=== PATIENT | female | born 1995 | race Caucasian/White ===

== ENCOUNTER → 2016-12-07 | Outpatient (CLI) | payer BC ==
--- NOTE | 2016-12-07 08:16 | REP ---
CT abdomen pelvis without contrast 12/07/2016 Indication: Hydronephrosis renal and ureteral calculus and obstruction ;intermittent left lower quadrant pain Comparison: CT abdomen pelvis Findings: Lung bases are clear bilaterally. Liver, spleen,pancreas, gallbladder, adrenal glands are normal. Kidneys are without hydronephrosis or obstructing ureteral calculi bilaterally. Previous 5 mm calculus at left ureteral vesicle junction is no longer present. Stable a mm left Nephro calculus is identified. Abdominal aorta is of normal course and caliber. Stomach and small bowel are within normal limits. Appendix is not specifically visualized however there are no inflammatory changes in the right lower quadrant Uterus and adnexa are within normal limits. Bladder is contracted. There is moderate diffuse retained colonic stool. There is no free air or ascites. Impression: No hydronephrosis or obstructing ureteral calculi bilaterally. Previous obstructing 5 mm calculus at left ureteral vesicle junction is no longer present. Stable 3 mm nonobstructing left Nephro calculus. Moderate diffuse retained colonic stool/ constipation Signed by Carolyn Lott MD 12/07/2016 08:08 A
== END | disposition home or self-care (01) ==
LOC: M RAD 07:11
PROVIDERS: ATTEND Urology
DX: N13.2 Hydronephrosis with renal and ureteral calculous obstruction (principal); K59.00 Constipation, unspecified

== ENCOUNTER → 2017-01-09 | Outpatient (REF) | payer BC | LOC: M SFHCPLAZ 12:52 | PROVIDERS: ATTEND Nurse Practitioner Adult Health | DX: R35.0 Frequency of micturition (principal) ==

== ENCOUNTER → 2017-06-28 | Outpatient (REF) | payer BC ==
[2017-06-28 10:48] LABS: MEAN CORPUSCULAR HEMOGLOBIN 31.4 pg (27.0-33.0); MEAN CORPUSCULAR HGB CONC 34.4 g/dl (32.0-36.5); MEAN CORPUSCULAR VOLUME 91.2 fl (80.0-96.0); RED CELL DISTRIBUTION WIDTH 12.6 % (11.5-14.5); WHITE BLOOD COUNT 8.5 K/mm3 (4.0-10.0)
[2017-06-28 14:19] LABS: ALBUMIN 3.8 GM/DL (3.2-5.2); ALBUMIN/GLOBULIN RATIO 1.23 (1.00-1.93); ALKALINE PHOSPHATASE 80 U/L (45-117); ALT/SGPT 54 U/L (12-78); ANION GAP 10 MEQ/L (8-16); AST/SGOT 31 U/L (15-37); BILIRUBIN,TOTAL 0.5 MG/DL (0.2-1.0); BLOOD UREA NITROGEN 11 MG/DL (7-18); CALCIUM LEVEL 9.2 MG/DL (8.5-10.1); CARBON DIOXIDE LEVEL 27 MEQ/L (21-32); CHLORIDE LEVEL 108 MEQ/L (98-107); CHOLESTEROL LEVEL 119 MG/DL (<200); CREATININE FOR GFR 0.84 MG/DL (0.55-1.02); GLOMERULAR FILTRATION RATE > 60.0 (>60); GLUCOSE, FASTING 89 MG/DL (70-105); POTASSIUM SERUM 4.1 MEQ/L (3.5-5.1); SODIUM LEVEL 145 MEQ/L (136-145); TOTAL PROTEIN 6.9 GM/DL (6.4-8.2); TRIGLYCERIDES LEVEL 67 MG/DL (<150)
== END ==
LOC: M SFHCPLAZ 09:14
PROVIDERS: ATTEND Internal Medicine
DX: Z00.00 Encounter for general adult medical examination without abnormal findings (principal); K21.9 Gastro-esophageal reflux disease without esophagitis; N20.0 Calculus of kidney; R63.5 Abnormal weight gain

== ENCOUNTER → 2017-08-18 | Outpatient (REF) | payer BC | LOC: M LAB REF 09:04 | PROVIDERS: ATTEND Physician Assistant | DX: R30.0 Dysuria (principal) ==

== ENCOUNTER → 2017-11-16 | Outpatient (REF) | payer BC | LOC: M LAB REF 19:11 | DX: N39.0 Urinary tract infection, site not specified (principal) | CPT/HCPCS: 87186 ==

== ENCOUNTER → 2018-12-26 | Outpatient (REF) | payer BC ==
[2018-12-26 12:22] LABS: HEMATOCRIT 41.4 % (36.0-47.0); HEMOGLOBIN 13.8 g/dl (12.0-15.5); MEAN CORPUSCULAR HEMOGLOBIN 30.3 pg (27.0-33.0); MEAN CORPUSCULAR HGB CONC 33.3 g/dl (32.0-36.5); MEAN CORPUSCULAR VOLUME 90.8 fl (80.0-96.0); PLATELET COUNT, AUTOMATED 303 10^3/uL (150-450); RED BLOOD COUNT 4.56 10^6/uL (4.00-5.40); WHITE BLOOD COUNT 7.6 10^3/uL (4.0-10.0)
[2018-12-26 12:42] LABS: ALBUMIN 3.7 GM/DL (3.2-5.2); ALT/SGPT 34 U/L (12-78); BILIRUBIN,TOTAL 0.4 MG/DL (0.2-1.0); BLOOD UREA NITROGEN 15 MG/DL (7-18); CALCIUM LEVEL 8.8 MG/DL (8.5-10.1); CARBON DIOXIDE LEVEL 27 MEQ/L (21-32); CHLORIDE LEVEL 106 MEQ/L (98-107); GLOMERULAR FILTRATION RATE > 60.0 (>60); GLUCOSE, FASTING 98 MG/DL (70-100); POTASSIUM SERUM 4.6 MEQ/L (3.5-5.1); SODIUM LEVEL 140 MEQ/L (136-145); TOTAL PROTEIN 6.7 GM/DL (6.4-8.2)
== END ==
LOC: M SFHCPLAZ 10:36
PROVIDERS: ATTEND Nurse Practitioner Adult Health
DX: Z00.00 Encounter for general adult medical examination without abnormal findings (principal)

== ENCOUNTER → 2020-01-02 | Outpatient (REF) | payer BC, OTHER | LOC: M WHC 13:37 | PROVIDERS: ATTEND Advanced Practice Midwife | DX: O24.410 Gestational diabetes mellitus in pregnancy, diet controlled (principal) ==

== ENCOUNTER → 2020-01-10 | Outpatient (CLI) | payer OTHER | LOC: M LAB 10:43 | PROVIDERS: ATTEND Advanced Practice Midwife | DX: O24.410 Gestational diabetes mellitus in pregnancy, diet controlled (principal); Z3A.00 Weeks of gestation of pregnancy not specified ==

== ENCOUNTER 2020-01-24 07:59 | Outpatient (CLI) | payer OTHER ==
[~2020-01-24] VITALS: Ht 162.6 cm; Wt 92.8 kg
[2020-01-24 08:12] VITALS: BP 109/67
[2020-01-24] MEDS ORDERED: PRENTAB9 PO (08:18)
--- NOTE | 2020-01-24 09:10 | IPNPDOC ---
Text Note Date of Service The patient was seen on 01/24/20. NOTE Outpatient 24yo G1 JULIANN 01/28/2020. Presents @ 39w3d with complaints of UC since 0300, stronger over the last hour. Reports good movement. Denies LOF, altho reports scant bloody show. Pt states she was checked in office last Monday, "tight 1cm" Cat I tracing. Rare, irregular mild UC SVE, unchanged from office. Pt reports drinking only 4 bottles of fluid yesterday. Reviewed increased fluids, rest, shower. OH reviewed. Discharged home. Keep next appt VS,Fishbone, I+O VS, Fishbone, I+O Vital Signs Date Time Temp Pulse Resp B/P (MAP) Pulse Ox O2 Delivery O2 Flow Rate FiO2 01/24/20 08:12 98.2 114 16 109/67 (81) 97 Room Air Tamika Albarran CNM Jan 24, 2020 09:10
[2020-01-24 09:17] VITALS: BP 102/59
== END 2020-01-24 09:38 | disposition home or self-care (01) ==
LOC: M LDO 07:59
PROVIDERS: ATTEND Advanced Practice Midwife
DX: O47.1 False labor at or after 37 completed weeks of gestation (principal); Z3A.39 39 weeks gestation of pregnancy

== ENCOUNTER 2020-01-24 17:19 | Inpatient (IN) | payer OTHER ==
[~2020-01-24] VITALS: Ht 162.6 cm; Wt 92.4 kg
[~2020-01-24 17:19] MED LIST: PRENTAB9 PO
[2020-01-24 17:34] VITALS: BP 98/60
[2020-01-24] MEDS ORDERED: BUTORPHANOL 2 MG/ML INJ (J0595) IV ONE (18:00)
[2020-01-24] MEDS ORDERED: PROMETHAZINE INJ 25 MG/ML VIAL (J2550) IV ONE (18:00)
[2020-01-24] MEDS ORDERED: LACTATED RINGER'S 1000 ML IV ONE (18:00)
--- NOTE | 2020-01-24 18:08 | IPNPDOC ---
Text Note Date of Service The patient was seen on 01/24/20. NOTE Triage Subjective: Patient is a 24-year-old, at 39.3 wk gestation. Patient returns to L&D c/o continued uterine contractions increasing in intensity and frequency since presenting to triage earlier today. She reports contractions about every 3-4 minutes and painful. She reports positive movement and normal bloody show. She denies leakage of fluid. Objective: Alert and oriented x3. Abdomen soft. SVE 1-2/80/-1, normal bloody show noted. FHR 140, moderate variability. Accelerations present, decelerations absent. Contractions noted every 3-5 minutes, mild. Assessment: SIUP @ 39.2wk gestation, prolonged latent labor. FHR category 1. Plan: Therapeutic rest with IV stadol and phenergan. Encourage rest. 500ml IV fluid bolus. Anticipate cervical change or improvement of symptoms. VS,Fishbone, I+O VS, Fishbone, I+O Vital Signs Date Time Temp Pulse Resp B/P (MAP) Pulse Ox O2 Delivery O2 Flow Rate FiO2 01/24/20 17:34 98.0 110 16 98/60 (41) 96 Room Air Tamika Albarran Jan 24, 2020 18:08
[2020-01-24 18:37] VITALS: BP 118/62
[2020-01-25] VITALS (35 sets, daily range): BP systolic 84–136; BP diastolic 50–83
[2020-01-25] MEDS ORDERED: LACTATED RINGER'S 1000 ML IV ONE (00:30)
[2020-01-25] MEDS ORDERED: PROMETHAZINE INJ 25 MG/ML VIAL (J2550) IV ONE (00:30)
[2020-01-25] MEDS ORDERED: MORPHINE 10 MG/ML 1ML VIAL (J2270) IV ONE (00:30)
[2020-01-25] MEDS ORDERED: MORPHINE 10 MG/ML 1ML VIAL (J2270) IM ONE (00:30)
--- NOTE | 2020-01-25 00:30 | IPNPDOC ---
Text Note Date of Service The patient was seen on 01/25/20. NOTE Outpatient Awake. Reports pain 05/29, with 4/10 between UC Irregular mild UC, abdomen soft in between Cat I tracing SVE 2+/90/-3, old bloody show Morphine/phenergan ordered. Consider augmentation in the am. VS,Fishbone, I+O VS, Fishbone, I+O Vital Signs Date Time Temp Pulse Resp B/P (MAP) Pulse Ox O2 Delivery O2 Flow Rate FiO2 01/24/20 19:18 20 01/24/20 18:37 98 118/62 (80) 01/24/20 17:34 98.0 96 Room Air Tamika Albarran CNM Jan 25, 2020 00:30
[2020-01-25] MEDS ORDERED: LACTATED RINGER'S 1000 ML IV STA (12:15)
[2020-01-25] MEDS ORDERED: LR 1,000 ML IV SCH (12:30)
[2020-01-25 13:43] LABS: HEMATOCRIT 33.9 % (36.0-47.0); HEMOGLOBIN 11.6 g/dl (12.0-15.5); MEAN CORPUSCULAR HEMOGLOBIN 31.7 pg (27.0-33.0); MEAN CORPUSCULAR HGB CONC 34.2 g/dl (32.0-36.5); MEAN CORPUSCULAR VOLUME 92.6 fl (80.0-96.0); PLATELET COUNT, AUTOMATED 247 10^3/uL (150-450); RED BLOOD COUNT 3.66 10^6/uL (4.00-5.40); WHITE BLOOD COUNT 19.4 10^3/uL (4.0-10.0)
[2020-01-25] MEDS ORDERED: FENTANYL 2MCG/ML ROPIVACAINE 0.2% IN 0.9% NACL 100ML IVBAG As Ordered ONE (13:59)
[2020-01-25] MEDS ORDERED: OXYTOCIN DRIP 30 UNITS in IV 1 EA IV SCH (15:15)
[2020-01-25] MEDS ORDERED: diphenhydrAMINE INJ 50MG/ML VIAL (J1200) IV PRN (15:45)
[2020-01-25] MEDS ORDERED: EPIDURAL COMMENT XX SCH (15:45)
[2020-01-25] MEDS ORDERED: ePHEDrine SULFATE 25 MG/5 ML(5MG/ML) SYRINGE IV PRN (15:45)
[2020-01-25] MEDS ORDERED: EPIDURAL/PCA KEYS XX PRN (15:45)
[2020-01-25] MEDS ORDERED: REFRIGERATOR IV KEYS XX PRN (15:45)
[2020-01-25] MEDS ORDERED: ONDANSETRON 4MG/2ML VIAL (J2405) IV PRN (15:45)
[2020-01-25] MEDS ORDERED: FENTANYL/ROPIVACAINE/NACL BAG 100 ML EPIDURAL SCH (15:45)
[2020-01-25] MEDS ORDERED: NALOXONE INJ 0.4 MG/1 ML VIAL (J2310) IV PRN (15:45)
[2020-01-25] MEDS ORDERED: LACTATED RINGER'S 1000 ML IV PRN (15:45)
[2020-01-26] VITALS (11 sets, daily range): BP systolic 84–129; BP diastolic 51–71
[2020-01-26] MEDS ORDERED: OXYTOCIN DRIP 30 UNITS in IV 1 EA IV SCH (03:02)
[2020-01-26] MEDS ORDERED: LR 1,000 ML IV SCH (03:02)
[2020-01-26] MEDS ORDERED: ACETAMINOPHEN 500 MG TAB PO PRN (03:15)
[2020-01-26] MEDS ORDERED: DIBUCAINE 1% OINTMENT 30GM TOP PRN (03:15)
[2020-01-26] MEDS ORDERED: RHOGAM 300 MCG (1500 IU) INJ (J2790) IM SCH (03:15)
[2020-01-26] MEDS ORDERED: IBUPROFEN 600 MG TAB PO PRN (03:15)
[2020-01-26] MEDS ORDERED: DOCUSATE SODIUM 100 MG CAP PO PRN (03:15)
[2020-01-26] MEDS ORDERED: MEASLES,MUMPS,RUBELLA VACCINE INJ (MMR-II) (90707) SC SCH (03:15)
[2020-01-26] MEDS ORDERED: IBUPROFEN 800 MG TAB PO PRN (03:15)
[2020-01-26] MEDS ORDERED: ACETAMINOPHEN TAB 650MG DOSE (2X325MG) PO PRN (03:15)
[2020-01-26] MEDS ORDERED: ONDANSETRON 4MG/2ML VIAL (J2405) IV PRN (03:15)
[2020-01-26] MEDS ORDERED: PROMETHAZINE 25 MG TAB PO PRN (03:15)
[2020-01-26] MEDS: PRENATAL VITAMINS CHEWABLE TABLET PO SCH (08:25)
[2020-01-27 06:00] VITALS: BP 111/67
[2020-01-27] MEDS: PRENATAL VITAMINS CHEWABLE TABLET PO SCH (09:00)
== END 2020-01-27 15:20 | disposition home or self-care (01) | DRG 560 ==
LOC: M LDO 17:19 → M LDI 01-25 11:55 → M OBS 01-26 04:28
PROVIDERS: ADMIT Obstetrics & Gynecology; ATTEND Obstetrics & Gynecology
PROC: 10E0XZZ Delivery of Products of Conception, External Approach (ICD-10-PCS; principal; 2020-01-26)
PROC: 0KQM0ZZ Repair Perineum Muscle, Open Approach (ICD-10-PCS; 2020-01-26)
DX: O24.429 Gestational diabetes mellitus in childbirth, unspecified control (principal); O70.1 Second degree perineal laceration during delivery; Z37.0 Single live birth; Z3A.39 39 weeks gestation of pregnancy

== ENCOUNTER → 2021-08-02 | Outpatient (CLI) | payer OTHER ==
[2021-08-02 13:36] LABS: HEMATOCRIT 42.3 % (36.0-47.0); HEMOGLOBIN 14.1 g/dl (12.0-15.5); MEAN CORPUSCULAR HGB CONC 33.3 g/dl (32.0-36.5); PLATELET COUNT, AUTOMATED 303 10^3/uL (150-450); RED BLOOD COUNT 4.55 10^6/uL (4.00-5.40); WHITE BLOOD COUNT 7.4 10^3/uL (4.0-10.0)
[2021-08-02 15:45] LABS: ALBUMIN 3.6 GM/DL (3.2-5.2); ALT/SGPT 27 U/L (12-78); BILIRUBIN,TOTAL 0.7 MG/DL (0.2-1.0); BLOOD UREA NITROGEN 14 MG/DL (7-18); CALCIUM LEVEL 9.4 MG/DL (8.5-10.1); CARBON DIOXIDE LEVEL 29 MEQ/L (21-32); CHLORIDE LEVEL 107 MEQ/L (98-107); CREATININE FOR GFR 0.74 MG/DL (0.55-1.30); GLOMERULAR FILTRATION RATE > 60.0 (>60); GLUCOSE, FASTING 90 MG/DL (70-100); POTASSIUM SERUM 4.6 MEQ/L (3.5-5.1); SODIUM LEVEL 139 MEQ/L (136-145); TOTAL 25(OH) VITAMIN D 20.4 NG/ML (30.0-100.0); TOTAL PROTEIN 7.1 GM/DL (6.4-8.2)
== END ==
LOC: M PLALAB 11:13
PROVIDERS: ATTEND Nurse Practitioner Adult Health
DX: Z00.00 Encounter for general adult medical examination without abnormal findings (principal); E55.9 Vitamin D deficiency, unspecified; Z13.29 Encounter for screening for other suspected endocrine disorder

== ENCOUNTER → 2021-10-28 | Outpatient (REF) | payer OTHER ==
[~2021-10-28] MED LIST changes: +AMOX500C PO; +CEFD300C41 PO
[2021-10-28 20:11] LABS: GC DNA AMPLIFICATION NEGATIVE (NEGATIVE)
== END ==
LOC: M SFHCWAGY 17:36
PROVIDERS: ATTEND Obstetrics & Gynecology
DX: Z12.4 Encounter for screening for malignant neoplasm of cervix (principal); Z11.3 Encounter for screening for infections with a predominantly sexual mode of transmission

== ENCOUNTER → 2021-12-10 | Outpatient (REF) | payer OTHER | LOC: M WUC 19:05 → M LAB REF 19:05 | PROVIDERS: ATTEND Physician Assistant | DX: R30.0 Dysuria (principal) ==

== ENCOUNTER → 2022-08-17 | Outpatient (CLI) | payer OTHER ==
[2022-08-17 15:50] LABS: HEMATOCRIT 41.7 % (36.0-47.0); HEMOGLOBIN 13.7 g/dl (12.0-15.5); MEAN CORPUSCULAR HEMOGLOBIN 30.8 pg (27.0-33.0); MEAN CORPUSCULAR HGB CONC 32.9 g/dl (32.0-36.5); MEAN CORPUSCULAR VOLUME 93.7 fl (80.0-96.0); PLATELET COUNT, AUTOMATED 268 10^3/uL (150-450); RED BLOOD COUNT 4.45 10^6/uL (4.00-5.40); WHITE BLOOD COUNT 6.5 10^3/uL (4.0-10.0)
[2022-08-17 16:25] LABS: ALBUMIN 3.7 GM/DL (3.2-5.2); ALT/SGPT 20 U/L (12-78); BILIRUBIN,TOTAL 0.5 MG/DL (0.2-1.0); BLOOD UREA NITROGEN 15 MG/DL (7-18); CARBON DIOXIDE LEVEL 29 MEQ/L (21-32); CHLORIDE LEVEL 106 MEQ/L (98-107); CREATININE FOR GFR 0.89 MG/DL (0.55-1.30); FERRITIN 25 NG/ML (8-252); GLOMERULAR FILTRATION RATE > 60.0 (>60); GLUCOSE, FASTING 100 MG/DL (70-100); IRON (FE) 78 UG/DL (50-170); PERCENT SATURATION 25.3 % (13.2-45.0); POTASSIUM SERUM 4.4 MEQ/L (3.5-5.1); SODIUM LEVEL 139 MEQ/L (136-145); TOTAL IRON BINDING CAPACITY 308 UG/DL (250-450); TOTAL PROTEIN 6.9 GM/DL (6.4-8.2)
[2022-08-17 17:12] LABS: TOTAL 25(OH) VITAMIN D 25.8 NG/ML (30.0-100.0)
== END ==
LOC: M LAB 14:48
PROVIDERS: ATTEND Nurse Practitioner Adult Health
DX: Z00.00 Encounter for general adult medical examination without abnormal findings (principal); Z13.29 Encounter for screening for other suspected endocrine disorder; E55.9 Vitamin D deficiency, unspecified; R53.83 Other fatigue

== ENCOUNTER → 2023-08-10 | Outpatient (CLI) | payer OTHER ==
[2023-08-10 14:28] LABS: HEMATOCRIT 41.5 % (36.0-47.0); HEMOGLOBIN 13.6 g/dl (12.0-15.5); MEAN CORPUSCULAR HEMOGLOBIN 30.4 pg (27.0-33.0); MEAN CORPUSCULAR HGB CONC 32.8 g/dl (32.0-36.5); MEAN CORPUSCULAR VOLUME 92.8 fl (80.0-96.0); PLATELET COUNT, AUTOMATED 272 10^3/uL (150-450); RED BLOOD COUNT 4.47 10^6/uL (4.00-5.40); WHITE BLOOD COUNT 6.9 10^3/uL (4.0-10.0)
[2023-08-10 14:36] LABS: THYROID STIMULATING HORMONE 2.606 uIU/ML (0.55-4.78)
[2023-08-10 14:38] LABS: ALBUMIN 3.8 G/DL (3.2-5.2); ALKALINE PHOSPHATASE 55 U/L (46-116); ALT/SGPT 16 U/L (7.0-40); AST/SGOT 17 U/L (<34); BILIRUBIN,TOTAL 0.9 MG/DL (0.3-1.2); BLOOD UREA NITROGEN 11 MG/DL (9-23); CALCIUM LEVEL 9.2 MG/DL (8.5-10.1); CARBON DIOXIDE LEVEL 30 MMOL/L (20-31); CHLORIDE LEVEL 107 MMOL/L (98-107); CHOLESTEROL LEVEL 108 MG/DL (<200); CHOLESTEROL RISK RATIO 1.83 (<5); GLOMERULAR FILTRATION RATE > 60.0 (>60); GLUCOSE, FASTING 87 MG/DL (60-100); HDL CHOLESTEROL 58.7 MG/DL (>40); LDL CHOLESTEROL 40.3 MG/DL (<100); NON-HDL-C 49.3 MG/DL; POTASSIUM SERUM 4.8 MMOL/L (3.5-5.1); SODIUM LEVEL 140 MMOL/L (136-145); TOTAL 25(OH) VITAMIN D 15.8 NG/ML (20.0-100.0); TOTAL PROTEIN 6.6 G/DL (5.7-8.2); TRIGLYCERIDES LEVEL 45 MG/DL (<150)
== END ==
LOC: M PLALAB 10:06
PROVIDERS: ATTEND Nurse Practitioner Adult Health
DX: Z00.00 Encounter for general adult medical examination without abnormal findings (principal); Z13.29 Encounter for screening for other suspected endocrine disorder; E55.9 Vitamin D deficiency, unspecified

== ENCOUNTER → 2024-06-06 | Outpatient (REF) | payer OTHER ==
[~2024-06-06] MED LIST changes: +CEFD1CAP9 PO; -CEFD300C41 PO
== END ==
LOC: EEVIPCON 12:06 → M LAB REF 12:06
PROVIDERS: ATTEND Nurse Practitioner Family
DX: R30.0 Dysuria (principal)

== ENCOUNTER → 2024-08-13 | Outpatient (CLI) | payer OTHER ==
[2024-08-13 13:31] LABS: HEMATOCRIT 41.5 % (36.0-47.0); HEMOGLOBIN 13.7 g/dl (12.0-15.5); MEAN CORPUSCULAR HEMOGLOBIN 30.9 pg (27.0-33.0); MEAN CORPUSCULAR VOLUME 93.5 fl (80.0-96.0); PLATELET COUNT, AUTOMATED 267 10^3/uL (150-450); RED BLOOD COUNT 4.44 10^6/uL (4.00-5.40); WHITE BLOOD COUNT 6.4 10^3/uL (4.0-10.0)
[2024-08-13 13:35] LABS: ALBUMIN 3.8 G/DL (3.2-5.2); ALKALINE PHOSPHATASE 54 U/L (46-116); ALT/SGPT 13 U/L (7.0-40); AST/SGOT 10 U/L (<34); BILIRUBIN,TOTAL 0.7 MG/DL (0.3-1.2); BLOOD UREA NITROGEN 10 MG/DL (9-23); CALCIUM LEVEL 9.5 MG/DL (8.5-10.1); CARBON DIOXIDE LEVEL 30 MMOL/L (20-31); CHLORIDE LEVEL 108 MMOL/L (98-107); CREATININE FOR GFR 0.85 MG/DL (0.55-1.30); GLOMERULAR FILTRATION RATE > 60.0 (>60); GLUCOSE, FASTING 100 MG/DL (60-100); IRON (FE) 89 UG/DL (50-170); PERCENT SATURATION 29.9 % (13.2-45.0); POTASSIUM SERUM 4.1 MMOL/L (3.5-5.1); SODIUM LEVEL 141 MMOL/L (136-145); TOTAL IRON BINDING CAPACITY 298 UG/DL (250-425); TOTAL PROTEIN 6.9 G/DL (5.7-8.2)
[2024-08-13 13:39] LABS: TOTAL 25(OH) VITAMIN D 21.1 NG/ML (20.0-100.0)
== END ==
LOC: M PLALAB 11:11
PROVIDERS: ATTEND Nurse Practitioner Adult Health
DX: Z00.00 Encounter for general adult medical examination without abnormal findings (principal); E55.9 Vitamin D deficiency, unspecified